=== PATIENT | female | born 2000 ===

== ENCOUNTER 2022-11-13 10:33 | Outpatient (CLI) | payer OTHER | END 2022-11-13 12:18 | disposition home or self-care (01) | LOC: PRENATAL 10:33 | PROVIDERS: ATTEND Obstetrics & Gynecology Maternal & Fetal Medicine | DX: O36.80X0 Pregnancy with inconclusive fetal viability, not applicable or unspecified (principal); Z3A.16 16 weeks gestation of pregnancy ==

== ENCOUNTER 2022-12-12 12:53 | Outpatient (CLI) | payer OTHER | END 2022-12-12 14:45 | disposition home or self-care (01) | LOC: PRENATAL 12:53 | PROVIDERS: ATTEND Obstetrics & Gynecology Maternal & Fetal Medicine | DX: O35.9XX0 Maternal care for (suspected) fetal abnormality and damage, unspecified, not applicable or unspecified (principal); O35.3XX0 Maternal care for (suspected) damage to fetus from viral disease in mother, not applicable or unspecified; O44.00 Complete placenta previa NOS or without hemorrhage, unspecified trimester; Z3A.20 20 weeks gestation of pregnancy ==

== ENCOUNTER 2023-03-05 15:10 | Outpatient (CLI) | payer OTHER | END 2023-03-05 17:11 | disposition home or self-care (01) | LOC: PRENATAL 15:10 | PROVIDERS: ATTEND Obstetrics & Gynecology Maternal & Fetal Medicine | DX: O26.849 Uterine size-date discrepancy, unspecified trimester (principal); O36.8199 Decreased fetal movements, unspecified trimester, other fetus; Z3A.32 32 weeks gestation of pregnancy ==